=== PATIENT | female | born 1945 | race Caucasian/White ===

== ENCOUNTER 2019-07-09 10:07 | Emergency (ER) | payer MEDICARE, OTHER ==
[~2019-07-09] VITALS: Ht 157.5 cm; Wt 78.0 kg
[2019-07-09 10:42] LABS: BASOPHILS # (AUTO) 0.1 X10'3 (0-0.2); BASOPHILS % (AUTO) 0.6 % (0-1); EOSINOPHILS # (AUTO) 0.1 X10'3 (0-0.9); EOSINOPHILS % (AUTO) 1.4 % (0-6); HEMATOCRIT 37.7 % (35.0-45.0); HEMOGLOBIN 12.5 g/dl (12.0-16.0); LYMPHOCYTES # (AUTO) 1.1 X10'3 (1.1-4.8); LYMPHOCYTES % (AUTO) 12.8 % (21-51); MEAN CORPUSCULAR HEMOGLOBIN 28.1 PG (27.0-31.0); MEAN CORPUSCULAR HGB CONC 33.1 g/dL (33.0-36.5); MEAN CORPUSCULAR VOLUME 84.9 FL (78-98); MONOCYTES # (AUTO) 0.6 X10'3 (0-0.9); MONOCYTES % (AUTO) 7.3 % (2-12); NEUTROPHILS # (AUTO) 6.8 X10'3 (1.8-7.7); NEUTROPHILS % (AUTO) 77.9 % (42-75); PLATELET COUNT 418 X10'3 (140-440); RED BLOOD COUNT 4.44 X10'6 (4.20-5.60); RED CELL DISTRIBUTION WIDTH 13.8 % (11.5-14.5); WHITE BLOOD COUNT 8.7 X10'3 (4.5-11.0)
[2019-07-09 10:55] LABS: ALANINE AMINOTRANSFERASE 19 U/L (12-78); ALBUMIN 2.9 G/DL (3.4-5.0); ALBUMIN/GLOBULIN RATIO 0.7 (1.1-1.5); ALKALINE PHOSPHATASE 95 IU/L (46-116); ANION GAP 3 (8-16); ASPARTATE AMINO TRANSFERASE 21 U/L (10-37); BILIRUBIN,TOTAL 0.4 MG/DL (0.1-1.0); BLOOD UREA NITROGEN 9 MG/DL (7-18); BUN/CREATININE RATIO 10.5 (6.6-38.0); CALCIUM 8.8 MG/DL (8.5-10.1); CHLORIDE 107 MMOL/L (99-107); CREATININE 0.86 MG/DL (0.40-0.90); GLUCOSE 95 MG/DL (70-104); PARTIAL THROMBOPLASTIN TIME 28 SECONDS (22-32); POTASSIUM 4.1 MMOL/L (3.5-5.1); SODIUM 142 MMOL/L (135-145); TOTAL CARBON DIOXIDE 31.7 MMOL/L (24-32); TOTAL PROTEIN 7.2 G/DL (6.4-8.2); eGFR 65 ML/MIN
[2019-07-09] MEDS ORDERED: aspirin 81mg tab.chew PO ONE (11:00)
[2019-07-09 12:08] VITALS: BP 117/50
== END 2019-07-09 12:12 | disposition home or self-care (01) ==
LOC: ER 10:08
DX: R07.89 Other chest pain (principal); R05 Cough; I10 Essential (primary) hypertension; Z90.49 Acquired absence of other specified parts of digestive tract; Z88.0 Allergy status to penicillin; Z88.1 Allergy status to other antibiotic agents; Z88.8 Allergy status to other drugs, medicaments and biological substances
CPT/HCPCS: 36415; 71045; 80053; 84484; 85025; 85610; 85730; 93005; 99285

== ENCOUNTER 2023-10-27 09:47 | Outpatient (CLI) | payer MEDICARE ==
[2023-10-27] VITALS (8 sets, daily range): BP systolic 92–116; BP diastolic 56–68; PULSE 71–114; RESP 14–18; O2SAT 97–100
[~2023-10-27 09:47] MED LIST: APIX5TAB3 PO; ATOR10TA PO; CARV3.122 PO; CYAN-104 PO; DULO30CA52 PO; LISI2.5T14 PO; MEMA10TA22 PO; MULT-1085 PO
[2023-10-27] MEDS: regadenoson 0.4mg/5ml syringe IV ONE (12:32)
[2023-10-27] MEDS: aminophylline 500mg/20ml vial IV ONE (12:46)
== END 2023-10-27 23:59 | disposition home or self-care (01) ==
LOC: RAD 09:47
PROVIDERS: ATTEND Internal Medicine Cardiovascular Disease
DX: R94.31 Abnormal electrocardiogram [ECG] [EKG] (principal); I42.9 Cardiomyopathy, unspecified
CPT/HCPCS: 78452; 93017; A9500; J2785